=== PATIENT | female | born 1990 | race Hispanic/Latino ===

== ENCOUNTER 2019-11-29 06:50 | Day surgery (SDC) | payer MEDICARE, MEDICAID ==
[2019-11-29] MEDS ORDERED: SODIUM CHLORIDE 0.9% 500 ML 500 ML IV SCH (08:00)
[2019-11-29] MEDS ORDERED: NITROGLYCERIN 0.4 MG TAB SUBL SL ONE (08:29)
[2019-11-29] MEDS ORDERED: ATROPINE 0.1% (1 MG/10 ML) CARDIAC SYRINGE ONE (08:29)
[2019-11-29] MEDS ORDERED: EPINEPHrine 1:10,000 1 MG/10 ML SYRINGE ONE (08:29)
--- NOTE | 2019-11-29 09:44 | Short Stay Summary ---
Short Stay Documentation Date of service: 11/29/19 - History H&P: obtained from office - Allergies and Medications Current Medications: Allergies divalproex sodium [From Depakote] Allergy (Verified 11/29/19 07:09) Unknown Home Medications Medication Instructions Recorded Confirmed Last Taken Type Ca/D3/Mag Ox/Zinc/Blank Driller/Caleb/Bor 1 each PO DAILY 11/29/19 11/29/19 11/29/19 05:30 History [Calcium 600+D3 Plus Caplet] Multivit-Min/Iron Fum/Folic AC 1 each PO DAILY 11/29/19 11/29/19 11/29/19 05:30 History [Bfixm-Hqyuaib-Pdpjnyfk Tablet] carBAMazepine [TEGretol] 200 mg PO TID 11/29/19 11/29/19 11/29/19 05:30 History Active Medications Sodium Chloride (Nacl 0.9% 500 Ml) 500 mls @ 50 mls/hr IV DIRECT AMELIA Last Admin: 11/29/19 08:14 Dose: 50 mls/hr Documented by: - Physical exam General appearance: no acute distress Lungs: Clear to auscultation Heart: Regular rate Gastrointestinal: normal Extremities: No edema Neurological: Normal gait - Brief post op/procedure progress note Date of procedure: 11/29/19 Pre-op diagnosis: Syncope Post-op diagnosis: same Procedure: TTT Anesthesia: none Findings: See report Surgeon: NICOLE REID Estimated blood loss: none Pathology: none Condition: stable - Hospital course Hospital course: Uneventful - Disposition Condition at discharge: Good Disposition: DC-01 TO HOME OR SELFCARE Short Stay Discharge Plan Activity: no restrictions Weight Bearing Status: Weight Bear as Tolerated Diet: regular Follow up with: TRACE VALERA MD [Primary Care Provider] - 7 Days
[2019-11-29] MEDS ORDERED: ACETAMINOPHEN 325 MG TAB PO ONE (09:56)
[2019-11-29 10:36] VITALS: BP 102/70
--- NOTE | 2019-11-29 13:26 | Procedure Note ---
TILT TABLE TEST INDICATION: Syncope. ORDERING PHYSICIAN: Dr. Schofield. FINDINGS: After obtaining written consent, the patient was secured to the tilt table test. The patient's supine blood pressure was 110/74. The patient's supine heart rate was 98 beats per minute. The patient was then tilted to 85 degrees from horizontal. Three minutes after tilting, her blood pressure was 107/82 with a heart rate of 97 beats per minute. The patient remained in the upright position for approximately 10 minutes. At the end of these 10 minutes, her blood pressure was 126/89 with a heart rate of 99 beats per minute, sinus rhythm. She was given sublingual nitroglycerin 0.4 mg and was kept in the upright position. Six minutes after nitroglycerin, her heart rate peaked at 149, sinus tach and her blood pressure was recorded at 107/73 at the lowest. The patient did not experience any dizziness or lightheadedness or loss of consciousness. The patient remained in sinus tachycardia. At the end of the 10 minutes, the patient was tilted back to horizontal with recovery of her blood pressure to 123/78 and her heart rate was 72 beats per minute. IMPRESSION: This is a negative tilt table test with no evidence of a cardioinhibitory or vasodepressor response to nitroglycerin. RECOMMENDATION: Follow up with ordering provider. JOB# [id number] NADEGE/JEAN PAUL
== END 2019-11-29 10:45 | disposition home or self-care (01) ==
LOC: CATHLABREC 06:50
PROVIDERS: ATTEND Internal Medicine
DX: R55 Syncope and collapse (principal); E78.00 Pure hypercholesterolemia, unspecified; F31.9 Bipolar disorder, unspecified; F41.9 Anxiety disorder, unspecified; F17.210 Nicotine dependence, cigarettes, uncomplicated; Z72.89 Other problems related to lifestyle; Z79.899 Other long term (current) drug therapy; Z98.890 Other specified postprocedural states; Z88.8 Allergy status to other drugs, medicaments and biological substances
CPT/HCPCS: 93005; 93010; 93660; J7040; J0171; J0461